=== PATIENT | female | born 1995 | race Caucasian/White ===

== ENCOUNTER 2021-01-06 21:17 | Inpatient (IN) | payer MEDICAID ==
[2021-01-06] MEDS ORDERED: Metoclopramide 10 MG/2 ML SDV IVPUSH ONE (21:58)
[2021-01-06] MEDS ORDERED: ceFAZolin 2 GM in Premix Bag 1 BAG IV ONE (21:58)
[2021-01-06] MEDS ORDERED: Citric Acid/Sodium Citrate Solution 30 ML Cup PO ONE (21:58)
[2021-01-06] MEDS ORDERED: Azithromycin 500 MG in Sodium Chloride 0.9% 250 ML IV ONE (21:58)
[2021-01-06] MEDS ORDERED: Sodium Chloride 0.9% 10 ML Syringe FLUSH PRN (21:58)
[2021-01-06] MEDS ORDERED: Oxytocin/Lactated Ringers 10 UNIT/1,000 ML BAG IV SCH (22:00)
[2021-01-06] MEDS ORDERED: Lactated Ringers 1,000 ML IV SCH (22:00)
[2021-01-06] MEDS ORDERED: Bupivacaine 0.5% 30 ML SDV ONE (22:18)
--- NOTE | 2021-01-06 22:34 | PCM.LDHP ---
L&D History of Present Illness - General Date of Service: 01/06/21 Admit Problem/Dx: Patient Status Order with Admit Dx/Problem 01/06/21 21:29 Patient Status [ADT] Routine 01/06/21 21:58 Patient Status [ADT] Routine Admission Diagnosis/Problem Admission Diagnosis/Problem Active labor Source of Information: Patient History Limitations: Reports: No Limitations - History of Present Illness Introduction:: Patient is a 25 year old GBS + x 1 for failure to progress in the second stage of labor who present today at 38-4 weeks gestational age for evaluation of labor. Reports that she has had contractions beginning at 4 am this morning and have been increasing in frequency and strength. She denies any leaking of fluid or vaginal bleeding. She desires a repeat . Present Illness Comments:: Patty Jackson is a GBS + B+ 25 year old x 1 female at 38-4 weeks gestation age (JAIME 01/16/21) by 6 week US and LMP who presents today for signs of labor. Patient desires a repeat . Patient was seen for early care in [place] before moving to the area and continuing care with Dr. Holliday. No known complications during her . She received her Tdap in 11/2020. OBGYN History 10/15/2014: Primary c/s at 40w0d for failure to progress in second stage. Male weighing 8 lbs 3629 g named Adrian Jackson G2: current labs: Blood type: B+ Antibody screen: Negative Rubella status: immune Hepatitis B surface antigen: negative RPR: unknown HIV: negative Gonorrhea: Negative Chlamydia: negative Anatomy US: One hour glucose tolerance test: 109 Second trimester hemoglobin: 12.1 Platelets: 258,000 GBS status: positive - Related Data Allergies/Adverse Reactions: Allergies Allergy/AdvReac Type Severity Reaction Status Date / Time magnesium Allergy Mild Itching Verified 01/06/21 21:29 H&P Review of Systems - Review of Systems: Review Of Systems: See Below General: Reports: No Symptoms HEENT: Reports: No Symptoms Pulmonary: Reports: No Symptoms Cardiovascular: Reports: No Symptoms Gastrointestinal: Reports: No Symptoms Genitourinary: Reports: No Symptoms Musculoskeletal: Reports: No Symptoms Skin: Reports: No Symptoms Psychiatric: Reports: No Symptoms Neurological: Reports: No Symptoms Hematologic/Lymphatic: Reports: No Symptoms Immunologic: Reports: No Symptoms L&D Exam - Exam Exam: See Below - Vital Signs Weight: 254 lb 8 oz - OB Specific Contraction Intensity: Moderate Movement: Active Heart Tones: Present - Guzman Score Guzman Score Cervix Position: Posterior Guzman Score Consistency: Firm Guzman Score Effacement: 31-50% Guzman Score Dilation: 1-2 cm Guzman Score Infant's Station: -3 Guzman Score Total: 2 - Exam General: Alert, Oriented HEENT: Conjunctiva Clear, EOMI Lungs: Clear to Auscultation, Normal Respiratory Effort Cardiovascular: Regular Rate, Regular Rhythm GI/Abdominal Exam: Normal Bowel Sounds, Soft, Non-Tender Extremities: Normal Inspection, Non-Tender, No Pedal Edema, Normal Capillary Refill Skin: Warm, Dry, Intact Psychiatric: Alert, Normal Affect, Anxious - Problem List (1) Previous section SNOMED Code(s): 093312842 ICD Code: Z98.891 - HISTORY OF UTERINE SCAR FROM PREVIOUS SURGERY Status: Acute Current Visit: Yes (2) 38 weeks gestation of SNOMED Code(s): 87861548 ICD Code: Z3A.38 - 38 WEEKS GESTATION OF Status: Acute Current Visit: Yes (3) Group B streptococcal infection during SNOMED Code(s): 930195170 ICD Code: O98.819 - OTH MATERNAL INFEC/PARASTC DISEASES COMP PREG, UNSP TRI; B95.1 - STREPTOCOCCUS, GROUP B, CAUSING DISEASES CLASSD ELSWHR Status: Acute Current Visit: Yes Problem List Initiated/Reviewed/Updated: Yes Orders Last 24hrs: Active Orders 24 hr Category Date Time Status Patient Status [ADT] Routine ADT 01/06/21 21:58 Active Antiembolic Devices [RC] PER UNIT ROUTINE Care 01/06/21 22:06 Active Communication Order [RC] ROUTINE Care 01/06/21 21:58 Active Heart Tones [RC] PER UNIT ROUTINE Care 01/06/21 21:58 Active Peripheral IV Care [RC] Q4HR Care 01/06/21 21:58 Active Procedure Site Prep Instruct [RC] ASDIRECTED Care 01/06/21 21:58 Active Urinary Catheter Assessment [RC] 03,,15, Care 01/06/21 21:58 Active Verify Patient Consent Obtain [RC] PER UNIT ROUTINE Care 01/06/21 21:58 Active Vital Signs [RC] PER UNIT ROUTINE Care 01/06/21 21:29 Active Nothing Per Oral Diet [DIET] Diet 01/06/21 Dinner Active CBC WITH AUTO DIFF [HEME] Stat Lab 01/06/21 22:14 Received CORONAVIRUS COVID-19 [facility] [MOLEC] Stat Lab 01/06/21 22:00 Ordered RAPID PLASMA REAGIN,RPR [CHEM] Stat Lab 01/06/21 22:14 Received TYPE AND SCREEN [BBK] Stat Lab 01/06/21 22:14 Received Azithromycin [Zithromax] 500 mg Med 01/06/21 21:58 Ordered Sodium Chloride 0.9% [Normal Saline (AdvBag)] 250 ml IV ONETIME Citric Acid/Sodium Citrate [Bicitra Solution] Med 01/06/21 21:58 Once 30 ml PO ONETIME ONE Lactated Ringers [Ringers, Lactated] 1,000 ml Med 01/06/21 22:00 Ordered IV ASDIRECTED Metoclopramide [Reglan] Med 01/06/21 21:58 Once 10 mg IVPUSH ONETIME ONE Oxytocin/Lactated Ringers [Pitocin in LR 10 Units/1,000 Med 01/06/21 22:00 Ordered ML] 10 unit in 1,000 ml IV ASDIRECTED Sodium Chloride 0.9% [Saline Flush] Med 01/06/21 21:58 Ordered 10 ml FLUSH ASDIRECTED PRN ceFAZolin [Ancef 2 GM/50 ML] 2 gm Med 01/06/21 21:58 Ordered Premix Bag 1 bag IV ONETIME Peripheral IV Insertion Adult [OM.PC] Routine Oth 01/06/21 21:58 Ordered SCD [Sequential Compression Device] [OM.PC] Routine Oth 01/06/21 22:06 Ordered Schedule Procedure [COMM] Per Unit Routine Oth 01/06/21 21:58 Ordered Resuscitation Status Routine Resus Stat 01/06/21 21:29 Ordered Assessment/Plan Comment:: 25 year old x 1 at 38-4 weeks gestational age who presented for evaluation of labor. 1. Previous - patient declines TOLAC and desires repeat 2. Plan for , OR notified and anesthesia to see patient. Patient NPO 3. GBS + - no allergies to antibiotics 4. B+ with negative antibody screen 5. Rubella immune 6. Unknown syphillis status - ordered on admission 7. Plans to breastfeed
[2021-01-06] MEDS ORDERED: ceFAZolin 1 GM Vial ONE ×2 (22:36→22:39)
[2021-01-06] MEDS ORDERED: Morphine PF 10 MG/10 ML SDV ONE (22:36)
[2021-01-06] MEDS ORDERED: Lactated Ringers 2,000 ML ONE (22:36)
[2021-01-06] MEDS ORDERED: Ondansetron 4 MG/2 ML SDV ONE (22:36)
[2021-01-06] MEDS ORDERED: Oxytocin 10 Units/1 ML SDV ONE (22:36)
[2021-01-06] MEDS ORDERED: Midazolam 1 MG/ML 2 ML SDV ONE ×2 (23:02→23:30)
[2021-01-06] MEDS ORDERED: Dexamethasone 4 MG/ML SDV ONE (23:22)
[2021-01-06] MEDS ORDERED: fentaNYL 100 MCG/2 ML SDV ONE (23:30)
[2021-01-06] MEDS ORDERED: diphenhydrAMINE 50 MG/ML SDV IVPUSH PRN (23:34)
[2021-01-06] MEDS ORDERED: fentaNYL 100 MCG/2 ML SDV IVPUSH PRN (23:34)
[2021-01-06] MEDS ORDERED: Ondansetron 4 MG/2 ML SDV IVPUSH PRN (23:34)
[2021-01-06] MEDS ORDERED: HYDROmorphone 0.5 MG/0.5 ML Syringe ONE (23:48)
--- NOTE | 2021-01-06 23:55 | PCM.OPNOTE ---
- General Post-Op/Procedure Note Date of Surgery/Procedure: 01/06/21 Operative Procedure(s): Repeat lower uterine segment transverse section through Pfannenstiel skin incision Findings: Moderate anterior abdominal wall scarring. Uterus uterine wall is approximately 1 cm thick with minimal lower uterine segment thinning. Baby is in vertex presentation. Amniotic fluid was minimally meconium-stained. Bilateral fallopian tubes and ovaries were within normal is. Some omental scarring noted to the left side of the uterus. Baby was a female infant weighing 2890 g born at 2312 hrs. 01/06/2021 with Apgars of 8 and 9. Baby in vertex presentation. Pre Op Diagnosis: 38-4/7-week intrauterine , history of previous section, active labor, desire for repeat section Post-Op Diagnosis: Same with delivery of viable, female infant weighing 2890 g with Apgars of 8 and 9 at 2312 hrs. on 01/06/2021 Other Anesthesia Type: Marcaine 0.5% - 20 cc local Primary Surgeon: Man Rand Secondary Surgeon: Evonne Lewis Anesthesia Provider: Viviane Sierra Reason Gripper Installer Was Necessary: Retraction, assistance, patient safety, quality of care Fluid Replacement, Intraop: 2,000 Output, Urine Amount: 100 EBL in mLs: 600 Drain/Tube Comments:: Indwelling bladder catheter Complications: None Condition: Good Free Text/Narrative:: Surgery duration: 34 minutes Procedure: The patient is appropriately consented. Patient was transferred to the room and placed in a sitting position. Spinal anesthesia was admi nistered. After confirmation of adequate anesthesia patient was placed in a supine position with a wedge under her right side to facilitate left lateral positioning. The patient was prepped and draped in usual fashion after Etienne catheter was already placed . The anesthetic was checked and found to be adequate. 20 mL of Marcaine 0.5% was injected locally in the Pfannenstiel incision site. The Pfannenstiel skin incision was then made and carried down through skin, subcutaneous and fascial layers. The fascia was then undermined superiorly and inferiorly to allow for adequate operating room. The recti muscles midline and preperitoneal fat was bluntly dissected. Peritoneal cavity was entered longitudinally. The vesicouterine peritoneum was then incised transversely and bladder flap was developed. Myometrium was incised transversely to the level of the amniotic sac. This incision was extended bilaterally in a blunt fashion. The amniotic sac was then ruptured resulting in clear amniotic fluid. A hand is placed in the low uterine segment and the baby's head was brought forth through the incision. The baby was completely delivered using fundal pressure in a routine fashion. The nose and mouth were bulb suctioned. Baby's cord was clamped x2 cut and baby was handed off to attending sports coordinator Dr Duran. Placenta was expressed after cord blood was obtained. Uterus was then exteriorized to allow for easier closure. The cervix was assessed and found to be dilated adequately to allow egress of blood. The uterus was closed in 2 layers. The first layer a running locked suture of 0 Monocryl, the second layer a running locked vertical mattress suture of 0 Monocryl. Hemostasis confirmed at this time. Sponge instrument needle counts are correct. The uterus was returned to the abdominal cavity and lateral gutters were cleared of blood. Once again sponge needle counts are correct. The anterior abdominal wall was closed with a #1 PDS suture from angle to angle. The subcutaneous area was found to be free of any bleeders. interrupted sutures of 3-0 Monocryl were used to reapproximate the subcutaneous layer.Skin was closed with a running subcuticular stitch of 3-0 Monocryl in a vertical mattress suture fashion using a Aime needle. Prineo mesh/glue was then applied to further approximate the incision. It should be noted that patient received 2 g of Ancef +500 mg of a azithromycin preoperatively for infection prophylaxis and had Pitocin infused after delivery of the placenta to facilitate uterine contraction. She also had sequential compression stockings in place for DVT prophylaxis. Patient was discharged from the operating room in satisfactory condition.
--- NOTE | 2021-01-07 00:01 | PCM.PREANE ---
Preanesthetic Assessment - Procedure Proposed Procedure: Repeat Section - Anesthesia/Transfusion/Family Hx Anesthesia History: Prior Anesthesia Without Reaction Family History of Anesthesia Reaction: No - Review of Systems General: No Symptoms Pulmonary: Other (Asthma, inhaler use/ nebulizer one week ago. Smoker 1 pack per week. ) Cardiovascular: No Symptoms Gastrointestinal: Abdominal Pain (Uterine Contractions), Other (GERD) Neurological: No Symptoms Other: Reports: None (Obesity BMI 42.4), Anxiety - Physical Assessment NPO Status Date: 01/06/21 NPO Status Time: 18:45 Height: 1.65 m Weight: 115.439 kg ASA Class: 3 Mental Status: Alert & Oriented x3 Airway Class: Mallampati = 3 Dentition: Reports: Caries Thyro-Mental Finger Breadths: 3 Mouth Opening Finger Breadths: 3 ROM/Head Extension: Full Lungs: Clear to Auscultation, Normal Respiratory Effort Cardiovascular: Regular Rate, Regular Rhythm - Lab Values: Laboratory Last Values WBC 16.41 K/mm3 (3.98-10.04) H 01/06/21 22:14 RBC 4.06 M/mm3 (3.98-5.22) 01/06/21 22:14 Hgb 12.4 gm/dl (11.2-15.7) 01/06/21 22:14 Hct 36.5 % (34.1-44.9) 01/06/21 22:14 MCV 89.9 fl (79.4-94.8) 01/06/21 22:14 MCH 30.5 pg (25.6-32.2) 01/06/21 22:14 MCHC 34.0 g/dl (32.2-35.5) 01/06/21 22:14 RDW Std Deviation 40.6 fL (36.4-46.3) 01/06/21 22:14 Plt Count 258 K/mm3 (182-369) 01/06/21 22:14 MPV 9.4 fl (9.4-12.3) 01/06/21 22:14 Neut % (Auto) 71.6 % (34.0-71.1) H 01/06/21 22:14 Lymph % (Auto) 19.2 % (19.3-51.7) L 01/06/21 22:14 Chambers % (Auto) 7.7 % (4.7-12.5) 01/06/21 22:14 Eos % (Auto) 0.9 (0.7-5.8) 01/06/21 22:14 Baso % (Auto) 0.1 % (0.1-1.2) 01/06/21 22:14 Neut # (Auto) 11.75 K/mm3 (1.56-6.13) H 01/06/21 22:14 Lymph # (Auto) 3.15 K/mm3 (1.18-3.74) 01/06/21 22:14 Chambers # (Auto) 1.26 K/mm3 (0.24-0.36) H 01/06/21 22:14 Eos # (Auto) 0.15 K/mm3 (0.04-0.36) 01/06/21 22:14 Baso # (Auto) 0.02 K/mm3 (0.01-0.08) 01/06/21 22:14 SARS-CoV-2 RNA ([facility]) Negative (NEGATIVE) 01/06/21 22:43 Blood Type B POSITIVE 01/06/21 22:14 Gel Antibody Screen Negative 01/06/21 22:14 - Allergies Allergies/Adverse Reactions: Allergies Allergy/AdvReac Type Severity Reaction Status Date / Time magnesium Allergy Mild Itching Verified 01/06/21 21:29 - Acknowledgements Anesthesia Type Planned: Spinal Pt an Appropriate Candidate for the Planned Anesthesia: Yes Alternatives and Risks of Anesthesia Discussed w Pt/Guardian: Yes Pt/Guardian Understands and Agrees with Anesthesia Plan: Yes
[2021-01-07] MEDS ORDERED: Albuterol 6.7 GM Inhaler INH PRN (00:51)
[2021-01-07] MEDS ORDERED: ePHEDrine 50 MG/ML SDV IVPUSH PRN (01:52)
[2021-01-07] MEDS ORDERED: diphenhydrAMINE 50 MG/ML SDV IVPUSH PRN (01:52)
[2021-01-07] MEDS ORDERED: Ondansetron 4 MG/2 ML SDV IV PRN (01:52)
[2021-01-07] MEDS ORDERED: Naloxone 0.4 MG/ML SDV IVPUSH PRN (01:52)
[2021-01-07] MEDS ORDERED: Dextrose 5%-Lactated Ringers 1,000 ML IV SCH (01:52)
[2021-01-07] MEDS: Ibuprofen 800 MG Tab PO SCH ×3 (02:48→18:36)
[2021-01-07] MEDS: Docusate Sodium 100 MG Cap PO SCH ×2 (02:53→13:45)
--- NOTE | 2021-01-07 07:36 | PCM48HPAN ---
Post Anesthesia Note - EVALUATION WITHIN 48HRS OF ANESTHETIC Vital Signs in Normal Range: Yes Patient Participated in Evaluation: Yes Respiratory Function Stable: Yes Airway Patent: Yes Cardiovascular Function Stable: Yes Hydration Status Stable: Yes Pain Control Satisfactory: Yes Nausea and Vomiting Control Satisfactory: Yes Mental Status Recovered: Yes Vital Signs: Last Vital Signs Temp 36.7 C 01/07/21 02:42 Pulse 92 01/07/21 02:42 Resp 16 01/07/21 02:42 BP 123/95 H 01/07/21 02:42 Pulse Ox 94 L 01/07/21 02:42
[2021-01-07] MEDS: Simethicone 80 MG Tab.Chew PO SCH ×4 (09:05→21:19)
[2021-01-07] MEDS: Prenatal Multivitamin with Calcium/Folic Acid/Iron Tab PO SCH (09:05)
--- NOTE | 2021-01-07 12:18 | PCM.SN.2 ---
- Free Text/Narrative Note: note: Postoperative day #1. Patient is doing well in the period. Minimal lochia, voiding well, ambulated without problems. Nursing without concerns. Patient is afebrile, vital signs are stable Abdomen is flat, soft, uterus is below the umbilicus and is firm and nontender. Incision is dry, located in the intertrigo area of her lower abdomen under her panniculus. Prineo mesh is in place. Legs are nontender. Assessment: recovery going well. Plan: Routine care. Patient be discharged home within the next 24-48 hours.
[2021-01-07] MEDS ORDERED: Nicotine 14 MG/24 Hr Patch TRDERM ONE (20:19)
[2021-01-07] MEDS ORDERED: Calcium Carbonate 500 MG Tab.Chew PO PRN (21:01)
[2021-01-07] MEDS: Acetaminophen/oxyCODONE 325-5 MG Tab PO PRN (21:20)
[2021-01-08] MEDS: Docusate Sodium 100 MG Cap PO SCH ×2 (01:48→12:58)
[2021-01-08] MEDS: Ibuprofen 800 MG Tab PO SCH ×3 (01:48→17:17)
[2021-01-08] MEDS: Acetaminophen/oxyCODONE 325-5 MG Tab PO PRN ×5 (02:29→22:08)
--- NOTE | 2021-01-08 06:55 | PCM.PNPP ---
- General Info Date of Service: 01/08/21 Functional Status: Reports: Pain Controlled, Tolerating Diet, Ambulating, Urinating - Review of Systems General: Reports: No Symptoms Pulmonary: Reports: No Symptoms Cardiovascular: Reports: No Symptoms Gastrointestinal: Reports: Abdominal Pain (managed with medications ) Musculoskeletal: Reports: No Symptoms Neurological: Reports: No Symptoms - Patient Data Vital Signs - Most Recent: Last Vital Signs Temp 36.4 C 01/08/21 02:24 Pulse 78 01/08/21 02:24 Resp 16 01/08/21 02:24 BP 132/67 01/08/21 02:24 Pulse Ox 94 L 01/08/21 02:24 Weight - Most Recent: 115.439 kg I&O - Last 24 Hours: Intake & Output 01/07/21 01/07/21 01/08/21 14:59 22:59 06:59 Intake Total 180 1000 Output Total 200 1100 500 Balance -20 -100 -500 Lab Results - Last 24 Hours: Laboratory Results - last 24 hr 01/06/21 01/08/21 Range/Units 22:14 06:27 WBC 12.61 H (3.98-10.04) K/mm3 RBC 3.52 L (3.98-5.22) M/mm3 Hgb 10.6 L (11.2-15.7) gm/dl Hct 32.4 L (34.1-44.9) % MCV 92.0 (79.4-94.8) fl MCH 30.1 (25.6-32.2) pg MCHC 32.7 (32.2-35.5) g/dl RDW Std Deviation 41.7 (36.4-46.3) fL Plt Count 208 (182-369) K/mm3 MPV 9.5 (9.4-12.3) fl Neut % (Auto) 59.5 (34.0-71.1) % Lymph % (Auto) 32.1 (19.3-51.7) % Mcnairy % (Auto) 6.4 (4.7-12.5) % Eos % (Auto) 1.4 (0.7-5.8) Baso % (Auto) 0.2 (0.1-1.2) % Neut # (Auto) 7.50 H (1.56-6.13) K/mm3 Lymph # (Auto) 4.05 H (1.18-3.74) K/mm3 Mcnairy # (Auto) 0.81 H (0.24-0.36) K/mm3 Eos # (Auto) 0.18 (0.04-0.36) K/mm3 Baso # (Auto) 0.02 (0.01-0.08) K/mm3 RPR Non-reactive (NONREACTIVE) Med Orders - Current: Current Medications Albuterol (Albuterol 6.7 Gm Inhaler) 0 gm INH Q6H PRN PRN Reason: Wheezing Last Admin: 01/07/21 01:11 Dose: 1 puff Documented by: Calcium Carbonate/Glycine (Calcium Carbonate 500 Mg Tab.Chew) 500 mg PO Q2HR PRN PRN Reason: Indigestion Last Admin: 01/07/21 21:40 Dose: 500 mg Documented by: Diphenhydramine HCl (Diphenhydramine 50 Mg/Ml Sdv) 25 mg IVPUSH Q6H PRN PRN Reason: Itching or Nausea Docusate Sodium (Docusate Sodium 100 Mg Cap) 100 mg PO Q12H [facility] Last Admin: 01/08/21 01:48 Dose: 100 mg Documented by: Ephedrine Sulfate (Ephedrine 50 Mg/Ml Sdv) 5 mg IVPUSH SEECOMMENT PRN PRN Reason: Other Ibuprofen (Ibuprofen 800 Mg Tab) 800 mg PO Q8H [facility] Last Admin: 01/08/21 01:48 Dose: 800 mg Documented by: Miscellaneous Information (Remove Patch) 1 ea TRDERM Q24H [facility] Stop: 01/08/21 21:01 Naloxone HCl (Naloxone 0.4 Mg/Ml Sdv) 0.1 mg IVPUSH SEECOMMENT PRN PRN Reason: Respiratory Depression Ondansetron HCl (Ondansetron 4 Mg/2 Ml Sdv) 4 mg IV Q4H PRN PRN Reason: Nausea/Vomiting Last Admin: 01/07/21 02:53 Dose: 4 mg Documented by: Oxycodone/Acetaminophen (Acetaminophen/Oxycodone 325-5 Mg Tab) 1 tab PO Q4H PRN PRN Reason: Pain (moderate 4-6) Oxycodone/Acetaminophen (Acetaminophen/Oxycodone 325-5 Mg Tab) 2 tab PO Q4H PRN PRN Reason: Pain (severe 7-10) Last Admin: 01/08/21 06:27 Dose: 2 tab Documented by: Prenat Multivit/Airline Counter Agent/Iron/Folic Ac ( Multivitamin With Calcium/Folic Acid/Iron Tab) 1 each PO DAILY [facility] Last Admin: 01/07/21 09:05 Dose: 1 each Documented by: Simethicone (Simethicone 80 Mg Tab.Chew) 160 mg PO QID [facility] Last Admin: 01/07/21 21:19 Dose: 160 mg Documented by: Discontinued Medications Bupivacaine HCl (Bupivacaine 0.5% 30 Ml Sdv) Confirm Administered Dose 30 ml .ROUTE .STK-MED ONE Stop: 01/06/21 22:19 Last Admin: 01/06/21 23:06 Dose: 20 ml Documented by: Cefazolin Sodium (Cefazolin 1 Gm Vial) Confirm Administered Dose 2 gm .ROUTE .STK-MED ONE Stop: 01/06/21 22:37 Cefazolin Sodium (Cefazolin 1 Gm Vial) Confirm Administered Dose 2 gm .ROUTE .STK-MED ONE Stop: 01/06/21 22:40 Citric Acid/Sodium Citrate (Citric Acid/Sodium Citrate Solution 30 Ml Cup) 30 ml PO ONETIME ONE Stop: 01/06/21 21:59 Last Admin: 01/07/21 21:46 Dose: Not Given Documented by: Dexamethasone (Dexamethasone 4 Mg/Ml Sdv) Confirm Administered Dose 4 mg .ROUTE .STK-MED ONE Stop: 01/06/21 23:23 Diphenhydramine HCl (Diphenhydramine 50 Mg/Ml Sdv) 25 mg IVPUSH Q6H PRN PRN Reason: Pruritis Fentanyl (Fentanyl 100 Mcg/2 Ml Sdv) Confirm Administered Dose 100 mcg .ROUTE .STK-MED ONE Stop: 01/06/21 23:31 Fentanyl (Fentanyl 100 Mcg/2 Ml Sdv) 50 mcg IVPUSH Q5M PRN PRN Reason: Pain Hydromorphone HCl (Hydromorphone 0.5 Mg/0.5 Ml Syringe) Confirm Administered Dose 0.5 mg .ROUTE .STK-MED ONE Stop: 01/06/21 23:49 Lactated Ringer's (Ringers, Lactated) 1,000 mls @ 125 mls/hr IV ASDIRECTED [facility] Cefazolin Sodium/Dextrose 2 gm (/ Premix) 50 mls @ 100 mls/hr IV ONETIME ONE Stop: 01/06/21 22:27 Last Admin: 01/07/21 21:46 Dose: Not Given Documented by: Oxytocin/Lactated Ringer's (Pitocin In Lr 10 Units/1,000 Ml) 10 unit in 1,000 mls @ 100 mls/hr IV ASDIRECTED [facility] Azithromycin 500 mg/ Sodium (Chloride) 250 mls @ 250 mls/hr IV ONETIME ONE Stop: 01/06/21 22:57 Last Admin: 01/07/21 21:46 Dose: Not Given Documented by: Lactated Ringer's (Ringers, Lactated) Confirm Administered Dose 2,000 mls @ as directed .ROUTE .STK-MED ONE Stop: 01/06/21 22:37 Dextrose/Lactated Ringer's (Dextrose 5%-Lactated Ringers) 1,000 mls @ 125 mls/hr IV ASDIRECTED [facility] Stop: 01/07/21 09:51 Metoclopramide HCl (Metoclopramide 10 Mg/2 Ml Sdv) 10 mg IVPUSH ONETIME ONE Stop: 01/06/21 21:59 Last Admin: 01/07/21 21:46 Dose: Not Given Documented by: Midazolam HCl (Midazolam 1 Mg/Ml 2 Ml Sdv) Confirm Administered Dose 2 mg .ROUTE .STK-MED ONE Stop: 01/06/21 23:03 Midazolam HCl (Midazolam 1 Mg/Ml 2 Ml Sdv) Confirm Administered Dose 2 mg .ROUTE .STK-MED ONE Stop: 01/06/21 23:31 Miscellaneous Medication (Phenylephrine Hcl In 0.9% Nacl 1 Mg/10 Ml Syringe) Confirm Administered Dose 1 mg .ROUTE .STK-MED ONE Stop: 01/06/21 23:00 Morphine Sulfate (Morphine Pf 10 Mg/10 Ml Sdv) Confirm Administered Dose 10 mg .ROUTE .STK-MED ONE Stop: 01/06/21 22:37 Nicotine (Nicotine 14 Mg/24 Hr Patch) 14 mg TRDERM ONETIME ONE Stop: 01/07/21 20:20 Last Admin: 01/07/21 21:19 Dose: 14 mg Documented by: Ondansetron HCl (Ondansetron 4 Mg/2 Ml Sdv) Confirm Administered Dose 4 mg .ROUTE .STK-MED ONE Stop: 01/06/21 22:37 Ondansetron HCl (Ondansetron 4 Mg/2 Ml Sdv) 4 mg IVPUSH ONETIME PRN PRN Reason: Nausea/Vomiting Oxytocin (Oxytocin 10 Units/1 Ml Sdv) Confirm Administered Dose 20 unit .ROUTE .STK-MED ONE Stop: 01/06/21 22:37 Sodium Chloride (Sodium Chloride 0.9% 10 Ml Syringe) 10 ml FLUSH ASDIRECTED PRN PRN Reason: Keep Vein Open - Infant Interaction Infant Disposition, : in Room with Family Interaction: Holding Infant Feeding: Breastfed Infant; Nursed Well Support Person: , Significant Other - Recovery Exam Fundal Tone: Firm Fundal Level: 1 Fingerbreadths Below Umbilicus Fundal Placement: Midline Lochia Amount: Small Lochia Color: Rubra/Red Perineum Description: Intact, Minimal Bruising/Swelling Episiotomy/Laceration: None Bladder Status: Voiding Urinary Elimination: Voided - Exam General: Alert, Oriented, Cooperative Lungs: Clear to Auscultation, Normal Respiratory Effort Cardiovascular: Regular Rate, Regular Rhythm GI/Abdominal Exam: Soft, Non-Tender Skin: Warm, Dry, Intact Wound/Incisions: Healing Well, No Drainage - Problem List & Annotations (1) 38 weeks gestation of SNOMED Code(s): 60337501 Code(s): Z3A.38 - 38 WEEKS GESTATION OF Status: Acute Current Visit: Yes (2) Previous section SNOMED Code(s): 472557170 Code(s): Z98.891 - HISTORY OF UTERINE SCAR FROM PREVIOUS SURGERY Status: Acute Current Visit: Yes (3) Status post repeat low transverse section SNOMED Code(s): 740303423, 79086490, 069230700, 630854906, 893767322 Code(s): Z98.891 - HISTORY OF UTERINE SCAR FROM PREVIOUS SURGERY Status: Acute Current Visit: Yes - Problem List Review Problem List Initiated/Reviewed/Updated: Yes - My Orders Last 24 Hours: My Active Orders 01/07/21 21:01 Calcium Carbonate [Tums] 500 mg PO Q2HR PRN - Assessment Assessment:: POD#2 - Plan Plan:: * Routine cares * Breast feeding * Discharge home tomorrow
[2021-01-08] MEDS: Prenatal Multivitamin with Calcium/Folic Acid/Iron Tab PO SCH (09:18)
[2021-01-08] MEDS: Simethicone 80 MG Tab.Chew PO SCH ×4 (09:18→20:12)
[2021-01-08] MEDS: Nicotine 14 MG/24 Hr Patch TRDERM SCH (22:07)
[2021-01-09] MEDS: Ibuprofen 800 MG Tab PO SCH ×2 (04:05→09:30)
[2021-01-09] MEDS: Acetaminophen/oxyCODONE 325-5 MG Tab PO PRN ×2 (04:05→11:16)
[2021-01-09] MEDS: Docusate Sodium 100 MG Cap PO SCH (04:05)
[2021-01-09] MEDS: Simethicone 80 MG Tab.Chew PO SCH (08:05)
[2021-01-09] MEDS: Prenatal Multivitamin with Calcium/Folic Acid/Iron Tab PO SCH (08:05)
--- NOTE | 2021-01-09 08:35 | PCM.PNPP ---
- General Info Date of Service: 01/09/21 Functional Status: Reports: Pain Controlled, Tolerating Diet, Ambulating, Urinating - Review of Systems General: Reports: No Symptoms HEENT: Reports: No Symptoms Pulmonary: Reports: No Symptoms Cardiovascular: Reports: No Symptoms Gastrointestinal: Reports: No Symptoms Genitourinary: Reports: No Symptoms Musculoskeletal: Reports: No Symptoms Neurological: Reports: No Symptoms - Patient Data Vital Signs - Most Recent: Last Vital Signs Temp 36.5 C 01/09/21 04:10 Pulse 82 01/09/21 04:10 Resp 18 01/09/21 04:10 BP 139/92 H 01/09/21 04:10 Pulse Ox 95 01/09/21 04:10 Weight - Most Recent: 115.439 kg I&O - Last 24 Hours: Intake & Output 01/08/21 01/09/21 01/09/21 21:59 06:59 14:59 Intake Total Balance Med Orders - Current: Current Medications Albuterol (Albuterol 6.7 Gm Inhaler) 0 gm INH Q6H PRN PRN Reason: Wheezing Last Admin: 01/07/21 01:11 Dose: 1 puff Documented by: Calcium Carbonate/Glycine (Calcium Carbonate 500 Mg Tab.Chew) 500 mg PO Q2HR PRN PRN Reason: Indigestion Last Admin: 01/07/21 21:40 Dose: 500 mg Documented by: Diphenhydramine HCl (Diphenhydramine 50 Mg/Ml Sdv) 25 mg IVPUSH Q6H PRN PRN Reason: Itching or Nausea Docusate Sodium (Docusate Sodium 100 Mg Cap) 100 mg PO Q12H [facility] Last Admin: 01/09/21 04:05 Dose: 100 mg Documented by: Ephedrine Sulfate (Ephedrine 50 Mg/Ml Sdv) 5 mg IVPUSH SEECOMMENT PRN PRN Reason: Other Ibuprofen (Ibuprofen 800 Mg Tab) 800 mg PO Q8H [facility] Last Admin: 01/09/21 04:05 Dose: 800 mg Documented by: Naloxone HCl (Naloxone 0.4 Mg/Ml Sdv) 0.1 mg IVPUSH SEECOMMENT PRN PRN Reason: Respiratory Depression Nicotine (Nicotine 14 Mg/24 Hr Patch) 14 mg TRDERM DAILY [facility] Last Admin: 01/08/21 22:07 Dose: 14 mg Documented by: Ondansetron HCl (Ondansetron 4 Mg/2 Ml Sdv) 4 mg IV Q4H PRN PRN Reason: Nausea/Vomiting Last Admin: 01/07/21 02:53 Dose: 4 mg Documented by: Oxycodone/Acetaminophen (Acetaminophen/Oxycodone 325-5 Mg Tab) 1 tab PO Q4H PRN PRN Reason: Pain (moderate 4-6) Last Admin: 01/08/21 22:08 Dose: 1 tab Documented by: Oxycodone/Acetaminophen (Acetaminophen/Oxycodone 325-5 Mg Tab) 2 tab PO Q4H PRN PRN Reason: Pain (severe 7-10) Last Admin: 01/09/21 04:05 Dose: 2 tab Documented by: Prenat Multivit/[place]/Iron/Folic Ac ( Multivitamin With Calcium/Folic Acid/Iron Tab) 1 each PO DAILY [facility] Last Admin: 01/09/21 08:05 Dose: 1 each Documented by: Simethicone (Simethicone 80 Mg Tab.Chew) 160 mg PO QID [facility] Last Admin: 01/09/21 08:05 Dose: 160 mg Documented by: Discontinued Medications Bupivacaine HCl (Bupivacaine 0.5% 30 Ml Sdv) Confirm Administered Dose 30 ml .ROUTE .STK-MED ONE Stop: 01/06/21 22:19 Last Admin: 01/06/21 23:06 Dose: 20 ml Documented by: Cefazolin Sodium (Cefazolin 1 Gm Vial) Confirm Administered Dose 2 gm .ROUTE .STK-MED ONE Stop: 01/06/21 22:37 Cefazolin Sodium (Cefazolin 1 Gm Vial) Confirm Administered Dose 2 gm .ROUTE .STK-MED ONE Stop: 01/06/21 22:40 Citric Acid/Sodium Citrate (Citric Acid/Sodium Citrate Solution 30 Ml Cup) 30 ml PO ONETIME ONE Stop: 01/06/21 21:59 Last Admin: 01/07/21 21:46 Dose: Not Given Documented by: Dexamethasone (Dexamethasone 4 Mg/Ml Sdv) Confirm Administered Dose 4 mg .ROUTE .STK-MED ONE Stop: 01/06/21 23:23 Diphenhydramine HCl (Diphenhydramine 50 Mg/Ml Sdv) 25 mg IVPUSH Q6H PRN PRN Reason: Pruritis Fentanyl (Fentanyl 100 Mcg/2 Ml Sdv) Confirm Administered Dose 100 mcg .ROUTE .STK-MED ONE Stop: 01/06/21 23:31 Fentanyl (Fentanyl 100 Mcg/2 Ml Sdv) 50 mcg IVPUSH Q5M PRN PRN Reason: Pain Hydromorphone HCl (Hydromorphone 0.5 Mg/0.5 Ml Syringe) Confirm Administered Dose 0.5 mg .ROUTE .STK-MED ONE Stop: 01/06/21 23:49 Lactated Ringer's (Ringers, Lactated) 1,000 mls @ 125 mls/hr IV ASDIRECTED [facility] Cefazolin Sodium/Dextrose 2 gm (/ Premix) 50 mls @ 100 mls/hr IV ONETIME ONE Stop: 01/06/21 22:27 Last Admin: 01/07/21 21:46 Dose: Not Given Documented by: Oxytocin/Lactated Ringer's (Pitocin In Lr 10 Units/1,000 Ml) 10 unit in 1,000 mls @ 100 mls/hr IV ASDIRECTED [facility] Azithromycin 500 mg/ Sodium (Chloride) 250 mls @ 250 mls/hr IV ONETIME ONE Stop: 01/06/21 22:57 Last Admin: 01/07/21 21:46 Dose: Not Given Documented by: Lactated Ringer's (Ringers, Lactated) Confirm Administered Dose 2,000 mls @ as directed .ROUTE .STK-MED ONE Stop: 01/06/21 22:37 Dextrose/Lactated Ringer's (Dextrose 5%-Lactated Ringers) 1,000 mls @ 125 mls/hr IV ASDIRECTED [facility] Stop: 01/07/21 09:51 Metoclopramide HCl (Metoclopramide 10 Mg/2 Ml Sdv) 10 mg IVPUSH ONETIME ONE Stop: 01/06/21 21:59 Last Admin: 01/07/21 21:46 Dose: Not Given Documented by: Midazolam HCl (Midazolam 1 Mg/Ml 2 Ml Sdv) Confirm Administered Dose 2 mg .ROUTE .STK-MED ONE Stop: 01/06/21 23:03 Midazolam HCl (Midazolam 1 Mg/Ml 2 Ml Sdv) Confirm Administered Dose 2 mg .ROUTE .STK-MED ONE Stop: 01/06/21 23:31 Miscellaneous Information (Remove Patch) 1 ea TRDERM Q24H [facility] Stop: 01/08/21 21:01 Last Admin: 01/08/21 20:13 Dose: 1 ea Documented by: Miscellaneous Medication (Phenylephrine Hcl In 0.9% Nacl 1 Mg/10 Ml Syringe) Confirm Administered Dose 1 mg .ROUTE .STK-MED ONE Stop: 01/06/21 23:00 Morphine Sulfate (Morphine Pf 10 Mg/10 Ml Sdv) Confirm Administered Dose 10 mg .ROUTE .STK-MED ONE Stop: 01/06/21 22:37 Nicotine (Nicotine 14 Mg/24 Hr Patch) 14 mg TRDERM ONETIME ONE Stop: 01/07/21 20:20 Last Admin: 01/07/21 21:19 Dose: 14 mg Documented by: Ondansetron HCl (Ondansetron 4 Mg/2 Ml Sdv) Confirm Administered Dose 4 mg .ROUTE .STK-MED ONE Stop: 01/06/21 22:37 Ondansetron HCl (Ondansetron 4 Mg/2 Ml Sdv) 4 mg IVPUSH ONETIME PRN PRN Reason: Nausea/Vomiting Oxytocin (Oxytocin 10 Units/1 Ml Sdv) Confirm Administered Dose 20 unit .ROUTE .STK-MED ONE Stop: 01/06/21 22:37 Sodium Chloride (Sodium Chloride 0.9% 10 Ml Syringe) 10 ml FLUSH ASDIRECTED PRN PRN Reason: Keep Vein Open - Interaction Disposition, : in Room with Family Interaction: Holding Infant Feeding: Breastfed ; Nursed Well Support Person: , Significant Other - Recovery Exam Fundal Tone: Firm Fundal Level: 1 Fingerbreadths Below Umbilicus Fundal Placement: Midline Lochia Amount: Scant Lochia Color: Rubra/Red Perineum Description: Intact, Minimal Bruising/Swelling Episiotomy/Laceration: None Bladder Status: Voiding Urinary Elimination: Voided - Exam General: Alert, Oriented, Cooperative Lungs: Clear to Auscultation, Normal Respiratory Effort Cardiovascular: Regular Rate, Regular Rhythm GI/Abdominal Exam: Soft, Non-Tender Skin: Warm, Dry, Intact Wound/Incisions: Healing Well, No Drainage - Problem List & Annotations (1) 38 weeks gestation of SNOMED Code(s): 95676341 Code(s): Z3A.38 - 38 WEEKS GESTATION OF Status: Acute Current Visit: Yes (2) Previous section SNOMED Code(s): 993298483 Code(s): Z98.891 - HISTORY OF UTERINE SCAR FROM PREVIOUS SURGERY Status: Acute Current Visit: Yes (3) Status post repeat low transverse section SNOMED Code(s): 580909469, 35346713, 248319244, 195058518, 534698652 Code(s): Z98.891 - HISTORY OF UTERINE SCAR FROM PREVIOUS SURGERY Status: Acute Current Visit: Yes - Problem List Review Problem List Initiated/Reviewed/Updated: Yes - My Orders Last 24 Hours: My Active Orders 01/08/21 21:15 Nicotine [Habitrol] 14 mg TRDERM DAILY - Assessment Assessment:: POD#3 - Plan Plan:: * Routine cares * Breast feeding * Discharge home today
--- NOTE | 2021-01-09 08:38 | PCM.DCSUM1 ---
Discharge Summary - Discharge Data Discharge Date: 01/09/21 Discharge Disposition: Home, Self-Care 01 Condition: Good - Referral to Home Health Primary Care Physician: Nicci Holliday MD - Discharge Diagnosis/Problem(s) (1) 38 weeks gestation of SNOMED Code(s): 68458590 ICD Code: Z3A.38 - 38 WEEKS GESTATION OF Status: Acute Current Visit: Yes (2) Previous section SNOMED Code(s): 665550089 ICD Code: Z98.891 - HISTORY OF UTERINE SCAR FROM PREVIOUS SURGERY Status: Acute Current Visit: Yes (3) Status post repeat low transverse section SNOMED Code(s): 816823433, 97648000, 003205174, 823010840, 709617705 ICD Code: Z98.891 - HISTORY OF UTERINE SCAR FROM PREVIOUS SURGERY Status: Acute Current Visit: Yes - Patient Summary/Data Operative Procedure(s) Performed: Repeat lower uterine segment transverse section through Pfannenstiel skin incision Consults: None Recommended Follow-up Testing/Procedures: Follow up in 2 week for / pots op check Hospital Course: 25 y/o at 38 4/7 wks who presented in early labor with history of prior for FTP. Desired repeat . This was uncomplicated. See operative note . patient did well and was discharged home on POD#3 - Patient Instructions Diet: Regular Diet as Tolerated Activity: No Lifting Over 10 Pounds Activity, Other: Pelvic rest for 6 weeks Driving: Do Not Drive (while taking Percocet ) Showering/Bathing: May Shower, No Tub Bathing/Swimming Wound/Incision Care: Keep Operative Site/Wound Site Clean and Dry Notify Provider of: Fever, Increased Pain, Swelling and Redness, Drainage, Nausea and/or Vomiting - Discharge Plan *PRESCRIPTION DRUG MONITORING PROGRAM REVIEWED*: No *COPY OF PRESCRIPTION DRUG MONITORING REPORT IN PATIENT ANA: No Prescriptions/Med Rec: Acetaminophen/oxyCODONE [Percocet 325-5 MG] 1 - 2 tab PO Q6H PRN #20 tablet PRN Reason: Pain (Severe 7-10) Home Medications: Home Meds Albuterol Sulfate 2.5 mg IH ASDIRECTED 01/07/21 [History] Acetaminophen/oxyCODONE [Percocet 325-5 MG] 1 - 2 tab PO Q6H PRN #20 tablet 01/08/21 [Rx] Docusate Sodium [Colace] 100 mg PO Q12H cap 01/08/21 [Rx] Ibuprofen [Motrin] 800 mg PO Q8H tablet 01/08/21 [Rx] Vit with Ca/FA/Iron [ Plus Iron] 1 each PO DAILY tablet 01/08/21 [Rx] Patient Handouts: Steps to Quit Smoking Referrals: Nicci Holliday MD [Primary Care Provider] - (2-3 weeks for post op check ) - Discharge Summary/Plan Comment DC Time >30 min.: No - Patient Data Vitals - Most Recent: Last Vital Signs Temp 36.5 C 01/09/21 04:10 Pulse 82 01/09/21 04:10 Resp 18 01/09/21 04:10 BP 139/92 H 01/09/21 04:10 Pulse Ox 95 01/09/21 04:10 Weight - Most Recent: 115.439 kg I&O - Last 24 hours: Intake & Output 01/08/21 01/09/21 01/09/21 21:59 06:59 14:59 Intake Total Balance Med Orders - Current: Current Medications Albuterol (Albuterol 6.7 Gm Inhaler) 0 gm INH Q6H PRN PRN Reason: Wheezing Last Admin: 01/07/21 01:11 Dose: 1 puff Documented by: Calcium Carbonate/Glycine (Calcium Carbonate 500 Mg Tab.Chew) 500 mg PO Q2HR PRN PRN Reason: Indigestion Last Admin: 01/07/21 21:40 Dose: 500 mg Documented by: Diphenhydramine HCl (Diphenhydramine 50 Mg/Ml Sdv) 25 mg IVPUSH Q6H PRN PRN Reason: Itching or Nausea Docusate Sodium (Docusate Sodium 100 Mg Cap) 100 mg PO Q12H [facility] Last Admin: 01/09/21 04:05 Dose: 100 mg Documented by: Ephedrine Sulfate (Ephedrine 50 Mg/Ml Sdv) 5 mg IVPUSH SEECOMMENT PRN PRN Reason: Other Ibuprofen (Ibuprofen 800 Mg Tab) 800 mg PO Q8H [facility] Last Admin: 01/09/21 04:05 Dose: 800 mg Documented by: Naloxone HCl (Naloxone 0.4 Mg/Ml Sdv) 0.1 mg IVPUSH SEECOMMENT PRN PRN Reason: Respiratory Depression Nicotine (Nicotine 14 Mg/24 Hr Patch) 14 mg TRDERM DAILY [facility] Last Admin: 01/08/21 22:07 Dose: 14 mg Documented by: Ondansetron HCl (Ondansetron 4 Mg/2 Ml Sdv) 4 mg IV Q4H PRN PRN Reason: Nausea/Vomiting Last Admin: 01/07/21 02:53 Dose: 4 mg Documented by: Oxycodone/Acetaminophen (Acetaminophen/Oxycodone 325-5 Mg Tab) 1 tab PO Q4H PRN PRN Reason: Pain (moderate 4-6) Last Admin: 01/08/21 22:08 Dose: 1 tab Documented by: Oxycodone/Acetaminophen (Acetaminophen/Oxycodone 325-5 Mg Tab) 2 tab PO Q4H PRN PRN Reason: Pain (severe 7-10) Last Admin: 01/09/21 04:05 Dose: 2 tab Documented by: Prenat Multivit/[place]/Iron/Folic Ac ( Multivitamin With Calcium/Folic Acid/Iron Tab) 1 each PO DAILY [facility] Last Admin: 01/09/21 08:05 Dose: 1 each Documented by: Simethicone (Simethicone 80 Mg Tab.Chew) 160 mg PO QID [facility] Last Admin: 01/09/21 08:05 Dose: 160 mg Documented by: Discontinued Medications Bupivacaine HCl (Bupivacaine 0.5% 30 Ml Sdv) Confirm Administered Dose 30 ml .ROUTE .STK-MED ONE Stop: 01/06/21 22:19 Last Admin: 01/06/21 23:06 Dose: 20 ml Documented by: Cefazolin Sodium (Cefazolin 1 Gm Vial) Confirm Administered Dose 2 gm .ROUTE .STK-MED ONE Stop: 01/06/21 22:37 Cefazolin Sodium (Cefazolin 1 Gm Vial) Confirm Administered Dose 2 gm .ROUTE .STK-MED ONE Stop: 01/06/21 22:40 Citric Acid/Sodium Citrate (Citric Acid/Sodium Citrate Solution 30 Ml Cup) 30 ml PO ONETIME ONE Stop: 01/06/21 21:59 Last Admin: 01/07/21 21:46 Dose: Not Given Documented by: Dexamethasone (Dexamethasone 4 Mg/Ml Sdv) Confirm Administered Dose 4 mg .ROUTE .STK-MED ONE Stop: 01/06/21 23:23 Diphenhydramine HCl (Diphenhydramine 50 Mg/Ml Sdv) 25 mg IVPUSH Q6H PRN PRN Reason: Pruritis Fentanyl (Fentanyl 100 Mcg/2 Ml Sdv) Confirm Administered Dose 100 mcg .ROUTE .STK-MED ONE Stop: 01/06/21 23:31 Fentanyl (Fentanyl 100 Mcg/2 Ml Sdv) 50 mcg IVPUSH Q5M PRN PRN Reason: Pain Hydromorphone HCl (Hydromorphone 0.5 Mg/0.5 Ml Syringe) Confirm Administered Dose 0.5 mg .ROUTE .STK-MED ONE Stop: 01/06/21 23:49 Lactated Ringer's (Ringers, Lactated) 1,000 mls @ 125 mls/hr IV ASDIRECTED [facility] Cefazolin Sodium/Dextrose 2 gm (/ Premix) 50 mls @ 100 mls/hr IV ONETIME ONE Stop: 01/06/21 22:27 Last Admin: 01/07/21 21:46 Dose: Not Given Documented by: Oxytocin/Lactated Ringer's (Pitocin In Lr 10 Units/1,000 Ml) 10 unit in 1,000 mls @ 100 mls/hr IV ASDIRECTED [facility] Azithromycin 500 mg/ Sodium (Chloride) 250 mls @ 250 mls/hr IV ONETIME ONE Stop: 01/06/21 22:57 Last Admin: 01/07/21 21:46 Dose: Not Given Documented by: Lactated Ringer's (Ringers, Lactated) Confirm Administered Dose 2,000 mls @ as directed .ROUTE .STK-MED ONE Stop: 01/06/21 22:37 Dextrose/Lactated Ringer's (Dextrose 5%-Lactated Ringers) 1,000 mls @ 125 mls/hr IV ASDIRECTED [facility] Stop: 01/07/21 09:51 Metoclopramide HCl (Metoclopramide 10 Mg/2 Ml Sdv) 10 mg IVPUSH ONETIME ONE Stop: 01/06/21 21:59 Last Admin: 01/07/21 21:46 Dose: Not Given Documented by: Midazolam HCl (Midazolam 1 Mg/Ml 2 Ml Sdv) Confirm Administered Dose 2 mg .ROUTE .STK-MED ONE Stop: 01/06/21 23:03 Midazolam HCl (Midazolam 1 Mg/Ml 2 Ml Sdv) Confirm Administered Dose 2 mg .ROUTE .STK-MED ONE Stop: 01/06/21 23:31 Miscellaneous Information (Remove Patch) 1 ea TRDERM Q24H [facility] Stop: 01/08/21 21:01 Last Admin: 01/08/21 20:13 Dose: 1 ea Documented by: Miscellaneous Medication (Phenylephrine Hcl In 0.9% Nacl 1 Mg/10 Ml Syringe) Confirm Administered Dose 1 mg .ROUTE .STK-MED ONE Stop: 01/06/21 23:00 Morphine Sulfate (Morphine Pf 10 Mg/10 Ml Sdv) Confirm Administered Dose 10 mg .ROUTE .STK-MED ONE Stop: 01/06/21 22:37 Nicotine (Nicotine 14 Mg/24 Hr Patch) 14 mg TRDERM ONETIME ONE Stop: 01/07/21 20:20 Last Admin: 01/07/21 21:19 Dose: 14 mg Documented by: Ondansetron HCl (Ondansetron 4 Mg/2 Ml Sdv) Confirm Administered Dose 4 mg .ROUTE .STK-MED ONE Stop: 01/06/21 22:37 Ondansetron HCl (Ondansetron 4 Mg/2 Ml Sdv) 4 mg IVPUSH ONETIME PRN PRN Reason: Nausea/Vomiting Oxytocin (Oxytocin 10 Units/1 Ml Sdv) Confirm Administered Dose 20 unit .ROUTE .STK-MED ONE Stop: 01/06/21 22:37 Sodium Chloride (Sodium Chloride 0.9% 10 Ml Syringe) 10 ml FLUSH ASDIRECTED PRN PRN Reason: Keep Vein Open
[2021-01-09] MEDS: Nicotine 14 MG/24 Hr Patch TRDERM SCH (11:11)
== END 2021-01-09 11:30 | disposition home or self-care (01) | DRG 788 ==
LOC: JD.OBCHECK 21:17 → JD.OB 21:25 → JD.OBCHECK 21:57 → JD.OB 21:58
PROVIDERS: ADMIT Obstetrics & Gynecology; ATTEND Obstetrics & Gynecology
PROC: 10D00Z1 Extraction of Products of Conception, Low, Open Approach (ICD-10-PCS; principal; 2021-01-06)
DX: O34.211 Maternal care for low transverse scar from previous cesarean delivery (principal); Z37.0 Single live birth; Z3A.38 38 weeks gestation of pregnancy; O99.824 Streptococcus B carrier state complicating childbirth; Z20.822 Contact with and (suspected) exposure to COVID-19
CPT/HCPCS: 01961; 36415; 59025; 85025; 86592; 86850; 86900; 86901; 94762; A9270-GY; J0690; J1100; J1170; J2250; J2270; J2370; J2405; J2590; J3010; J3490; J7120; U0002